=== PATIENT | male | born 1960 | race Caucasian/White ===

== ENCOUNTER 2017-05-22 16:54 | Emergency (ER) | payer MEDICARE ==
[2017-05-22 17:52] VITALS: TEMP 98.4
--- NOTE | 2017-05-22 19:14 | ED ---
General Adult HPI - General Chief complaint: Psychiatric Symptoms Stated complaint: Mental Health Time Seen by Provider: 05/22/17 18:33 Source: patient, RN notes reviewed Mode of arrival: ambulatory - History of Present Illness Initial comments: Patient 57-year-old male who presents emergency room today with a chief complaint of needing psychiatric evaluation. Patient does admit that he feels like he "cannot handle it". He does admit to increased stress at home. Patient son is at bedside states that doctors father was concerned about the way he was talking. Patient states he has no thoughts of hurting himself. No falls of hurting anyone else. States he has no psychiatric history has never seen a counselor, therapist, or psychiatrist in the past. He does admit that police were called further weighing was concerned about his father. States that by police recommendation him to come here to the emergency room to have a psych evaluation. Patient denies any other complaints or symptoms currently. Patient denies any recent fever, chills, shortness of breath, chest pain, back pain, headaches or visual changes, or any other complaints. - Related Data Home Medications Medication Instructions Recorded Confirmed No Known Home Medications [No 03/12/16 05/22/17 Known Home Medications] Allergies Allergy/AdvReac Type Severity Reaction Status Date / Time No Known Allergies Allergy Verified 05/22/17 18:58 Review of Systems ROS Statement: Those systems with pertinent positive or pertinent negative responses have been documented in the HPI. ROS Other: All systems not noted in ROS Statement are negative. Past Medical History Past Medical History: No Reported History History of Any Multi-Drug Resistant Organisms: None Reported Past Surgical History: Hernia Repair, Tonsillectomy Past Psychological History: No Psychological Hx Reported Smoking Status: Never smoker Past Alcohol Use History: Occasional Past Drug Use History: None Reported General Exam - General Exam Comments Initial Comments: General: The patient is awake and alert, in no distress, and does not appear acutely ill. Eye: Pupils are equal, round and reactive to light, extra-ocular movements are intact. No nystagmus. There is normal conjunctiva bilaterally. No signs of icterus. Ears, nose, mouth and throat: There are moist mucous membranes and no oral lesions. Neck: The neck is supple, there is no tenderness or JVD. Cardiovascular: There is a regular rate and rhythm. No murmur, rub or gallop is appreciated. Respiratory: Lungs are clear to auscultation, respirations are non-labored, breath sounds are equal. No wheezes, stridor, rales, or rhonchi. Musculoskeletal: Normal ROM, no tenderness. Strength 5/5. Sensation intact. Pulses equal bilaterally 2+. Neurological: A&O x 3. CN II-XII intact, There are no obvious motor or sensory deficits. Coordination appears grossly intact. Speech is normal. Skin: Skin is warm and dry and no rashes or lesions are noted. Psychiatric: Cooperative, appropriate mood & affect. Course Vital Signs 05/22/17 17:47 Temperature 98.4 F Pulse Rate 93 Respiratory 18 Rate Blood Pressure 136/93 O2 Sat by Pulse 97 Oximetry Medical Decision Making - Medical Decision Making Patient seen by mental health here in emergency room. The recommendation patient may follow up outpatient. Patient states understanding and is in agreement. Advised return to emergency room at anytime for any other concerns. Disposition Clinical Impression: Psychiatric complaint Disposition: HOME SELF-CARE Condition: Good Instructions: Depression (ED) Additional Instructions: Please follow-up with mental health as discussed here the emergency room. Please return to emergency room if any symptoms increase worsen or for any other concerns. Referrals: Michelle Chisholm DO [Primary Care Provider] - 1-2 days Time of Disposition: 19:58
[2017-05-22 20:12] VITALS: BP 159/100; PULSE 94; RESP 20
[2017-05-22 20:41] LABS: Amphetamine Screen,Urine Not Detected (NotDetected); Barbiturate Screen,Urine Not Detected (NotDetected); Benzodiazepines Screen,Urine Not Detected (NotDetected); Cocaine Screen,Urine Not Detected (NotDetected); Methadone Screen, Urine Not Detected (NotDetected); Opiate Screen,Urine Not Detected (NotDetected); Oxycodone Screen, Urine Not Detected (NotDetected); Phencyclidine Screen,Urine Not Detected (NotDetected); Tricyclic Antidepressant,Urine Not Detected (NotDetected); Urn Cannabinoid Scrn Not Detected (NotDetected)
== END 2017-05-22 20:10 | disposition home or self-care (01) ==
LOC: EC 16:54
DX: F43.9 Reaction to severe stress, unspecified (principal)
CPT/HCPCS: 80306; 82075; 99284